=== PATIENT | male | born 2000 | race American Indian/Alaskan Native ===

== ENCOUNTER 2018-04-07 14:41 | Emergency (ER) | payer SELFPAY ==
--- NOTE | 2018-04-07 16:25 | XRay Report ---
FINAL REPORT EXAM: XR HAND 3+V LT HISTORY: HAND INJURY TECHNIQUE: Frontal, lateral, oblique views left hand Comparison: X-ray right hand also performed today FINDINGS: There is no evidence of fracture or subluxation. The joint spaces are maintained. There is irregularity of the contour of the ulnar aspect of the distal metaphysis of the 2nd metacarpal and of the proximal metaphysis of the proximal phalanx of the 4th digit. These are nonspecific in appearance but could represent small osteochondromas. The soft tissues are unremarkable. IMPRESSION: 1. No evidence of fracture or subluxation. 2. Bony changes in the distal metaphysis of the 2nd metacarpal and proximal metaphysis of the proximal phalanx of the 4th digit. These are nonspecific in appearance but could represent small osteochondromas. Correlation with the history of possible osteochondromatosis would be helpful.
--- NOTE | 2018-04-07 16:59 | XRay Report ---
FINAL REPORT EXAM: XR HAND 3+V RT HISTORY: HAND INJURY TECHNIQUE: Frontal, lateral, oblique views right hand Comparison: X-ray left hand also performed today FINDINGS: There is no evidence of fracture or subluxation. There is the appearance of bony excrescences arising from the distal metaphysis of the 2nd and 4th metacarpals and of the 2nd and 4th proximal phalanges. The joint spaces are maintained. The soft tissues are notable for soft tissue swelling on the dorsal and ulnar aspect of the hand. IMPRESSION: 1. No plain film evidence of fracture or subluxation. If there a clinical concern for fracture, CT imaging may be helpful. 2. Bony excrescences arising from the 2nd and 4th metacarpals and proximal phalanges which may represent osteochondromas. Correlation with possible clinical history of osteochondromatosis would be helpful. 3. Soft tissue swelling.
--- NOTE | 2018-04-07 17:41 | Emergency Department Report ---
ED General Adult HPI - General Chief complaint: Extremity Injury, Upper Stated complaint: BOTH HANDS INJURY/BREAKDOWN Time Seen by Provider: 04/07/18 17:28 Source: patient Mode of arrival: Stretcher Limitations: No Limitations - History of Present Illness Initial comments: 17-year-old -[place] male presents status post bilateral hand injuries. Patient reports that he was overwhelmed with his situation after which point he started punching the gomez. Patient denies homicidal ideations. The patient denies suicidal ideations. Patient does however report that he is overwhelmed does not and does not know how to deal with current living situation. Patient denies any other trauma. MD Complaint: anger reaction Treatments Prior to Arrival: none - Related Data Allergies Allergy/AdvReac Type Severity Reaction Status Date / Time No Known Allergies Allergy Unverified 04/07/18 15:05 ED Review of Systems ROS: Stated complaint: BOTH HANDS INJURY/BREAKDOWN Other details as noted in HPI Constitutional: denies: chills, fever Eyes: denies: eye pain, eye discharge, vision change ENT: denies: ear pain, throat pain Respiratory: denies: cough, shortness of breath, wheezing Cardiovascular: denies: chest pain, palpitations Endocrine: no symptoms reported Gastrointestinal: denies: abdominal pain, nausea, diarrhea Genitourinary: denies: urgency, dysuria Musculoskeletal: as per HPI, joint swelling (some mild swelling over the dorsal aspect of the right hand for range of motion of all fingers proximaltenderness) . denies: back pain, arthralgia Skin: denies: rash, lesions Neurological: denies: headache, weakness, paresthesias Psychiatric: denies: anxiety, depression, homicidal thoughts, suicidal thoughts Hematological/Lymphatic: denies: easy bleeding, easy bruising ED Past Medical Hx - Surgical History Additional Surgical History: BONE SURGERY - Social History Smoking Status: Never Smoker Substance Use Type: Marijuana ED Physical Exam - General Limitations: No Limitations General appearance: alert, in no apparent distress - Head Head exam: Present: atraumatic, normocephalic - Eye Eye exam: Present: normal appearance - ENT ENT exam: Present: mucous membranes moist - Neck Neck exam: Present: normal inspection - Respiratory Respiratory exam: Present: normal lung sounds bilaterally. Absent: respiratory distress - Cardiovascular Cardiovascular Exam: Present: regular rate, normal rhythm. Absent: systolic murmur, diastolic murmur, rubs, gallop - GI/Abdominal GI/Abdominal exam: Present: soft, normal bowel sounds - Rectal Rectal exam: Present: deferred - Expanded Upper Extremity Exam Right General: Absent: laceration Shoulder Exam: Present: full ROM. Absent: deformity, crepidus, dislocation Upper Arm exam: Present: normal inspection, full ROM Forearm Wrist exam: Present: normal inspection, full ROM. Absent: tenderness, swelling, abrasion, laceration, ecchymosis, deformity, dislocation Hand Wrist exam: Present: normal inspection, full ROM Hand L/R Back: 1 - Mild swelling and erythema dorsal aspect right hand Neuro motor exam: Present: wrist extension intact, thumb opposition intact, thumb IP flexion intact Neurosensory exam: Present: 2-point discrimination, radial nerve intact Vascular: Present: vascular compromise - Back Exam Back exam: Present: normal inspection - Neurological Exam Neurological exam: Present: alert, oriented X3 - Psychiatric Psychiatric exam: Present: normal affect, flat affect. Absent: homicidal ideation, suicidal ideation - Skin Skin exam: Present: warm, dry, intact, normal color. Absent: rash ED Course Vital Signs 04/07/18 15:05 Temperature 98.9 F Pulse Rate 78 Respiratory 20 Rate Blood Pressure 123/78 O2 Sat by Pulse 100 Oximetry - Reevaluation(s) Reevaluation #1: 04/07/18 18:50 After evaluation by mental health assessment team, they should reports that he is having suicidal ideation with no plan. Patient denies homicidal ideation. 1013 has been signed for patient safety. Patient awaiting medical clearance eventual transport. ED Medical Decision Making - Lab Data Result diagrams: 04/07/18 18:13 04/07/18 18:13 - Radiology Data Right Hand IMPRESSION: 1. No plain film evidence of fracture or subluxation. If there a clinical concern for fracture, CT imaging may be helpful. 2. Bony excrescences arising from the 2nd and 4th metacarpals and proximal phalanges which may represent osteochondromas. Correlation with possible clinical history of osteochondromatosis would be helpful. 3. Soft tissue swelling. Left Hand IMPRESSION: 1. No evidence of fracture or subluxation. 2. Bony changes in the distal metaphysis of the 2nd metacarpal and proximal metaphysis of the proximal phalanx of the 4th digit. These are nonspecific in appearance but could represent small osteochondromas. Correlation with the history of possible osteochondromatosis would be helpful. - Medical Decision Making 17-year-old male presents after having anger reaction at home. Patient reports he was really upset with his girlfriend for treating with him which resulted in punching the wall. Initially patient denied any homicidal suicidal ideations. X-rays negative for any fracture or dislocation. After evaluation by mental health assessment team, patient reports that he is having suicidal ideations without a plan. 1013 signed at this time. Patient medically cleared for transport. Critical care attestation.: If time is entered above; I have spent that time in minutes in the direct care of this critically ill patient, excluding procedure time. ED Disposition Clinical Impression: Suicidal ideation Disposition: [id number]/TX-[id number] ANOTHER TYPE [facility]TH[facility]ARE Is pt being admited?: No Does the pt Need Aspirin: No Condition: Fair Referrals: PRIMARY CARE, [Primary Care Provider] - 3-5 Days Time of Disposition: 20:45
[2018-04-07 18:35] LABS: Basophils % (Auto) 0.5 % (0.0-1.8); Eosinophils % (Auto) 0.4 % (0.0-4.3); Hematocrit 40.6 % (35.5-45.6); Hemoglobin 14.1 gm/dl (11.8-15.2); Lymphocytes # (Auto) 1.1 K/mm3 (1.2-5.4); Lymphocytes % (Auto) 13.5 % (13.4-35.0); Mean Corpuscular HGB Conc 35 % (32-34); Mean Corpuscular Hemoglobin 31 pg (28-32); Mean Corpuscular Volume 88 fl (84-94); Monocytes # (Auto) 0.6 K/mm3 (0.0-0.8); Monocytes % (Auto) 7.1 % (0.0-7.3); Platelet Count 349 K/mm3 (140-440); Red Cell Distribution Width 14.7 % (13.2-15.2)
[2018-04-07 18:58] LABS: BUN/Creatinine Ratio 18; Blood Urea Nitrogen 14 mg/dL (9-20); Calcium 9.6 mg/dL (8.4-10.2); Hemolysis Index 2
[2018-04-07 20:57] LABS: Bilirubin,Urine NEG (Negative); Blood,Urine NEG (Negative); Mucus,Urine 3+ /HPF; RBC,Urine < 1.0 /HPF (0.0-6.0)
[2018-04-07 20:59] LABS: Color,Urine Yellow (Yellow)
[2018-04-07 21:01] LABS: Amphetamine Screen,Urine PRESUMPTIVE NEGATIVE; Benzodiazepines Screen,Urine PRESUMPTIVE NEGATIVE; Cocaine Screen,Urine PRESUMPTIVE NEGATIVE; Methadone Screen,Urine PRESUMPTIVE NEGATIVE; Opiate Screen,Urine PRESUMPTIVE NEGATIVE
[2018-04-07 21:14] LABS: Cannabinoid Screen,Urine PRESUMPTIVE POSITIVE
[2018-04-08 11:31] VITALS: BP 125/67
== END 2018-04-08 11:33 | disposition other institution (70) ==
LOC: ED 14:41
DX: S69.92XA Unspecified injury of left wrist, hand and finger(s), initial encounter (principal); S69.91XA Unspecified injury of right wrist, hand and finger(s), initial encounter; R45.4 Irritability and anger; F12.10 Cannabis abuse, uncomplicated; Z79.899 Other long term (current) drug therapy; X83.8XXA Intentional self-harm by other specified means, initial encounter; Y93.89 Activity, other specified; Y92.89 Other specified places as the place of occurrence of the external cause; Y99.8 Other external cause status
CPT/HCPCS: 36415; 73130; 80048; 80307; 81001; 85025; 99285; G0480; 80320